=== PATIENT | male | born 1995 | race African-American/Black ===

== ENCOUNTER 2023-04-22 03:58 | Emergency (ER) | payer OTHER ==
--- NOTE | 2023-04-22 04:27 | ED Physician Documentation ---
PD HPI CHEST PAIN - Stated complaint Stated Complaint: CP - Chief complaint Chief Complaint: Cardiac - History obtained from History obtained from: Patient - Additional information Additional information: Patient is a 27-year-old male with no significant prior medical history presenting for evaluation of chest pain that started around 1:00 this morning. Patient is active [employer] and was working at the [employer] but denies that he was doing anything to exert himself and states he was just sitting there when the pain started. He reports it feels similar to when you have eaten food and it gets stuck midway down. He reports it felt like a sharp pain. It has since improved. He denies associated symptoms such as nausea, vomiting, shortness of breath. The pain did not radiate elsewhere. Nothing made it better or worse. Denies prior history of similar symptoms. Denies history of hypertension, hyperlipidemia, diabetes, family history of early coronary artery disease, history of pulmonary embolism, recent travel or immobilization. Denies recent drug or alcohol use. Review of Systems Constitutional: denies: Fever Cardiac: reports: Chest pain / pressure Respiratory: denies: Dyspnea GI: denies: Abdominal Pain Neurologic: denies: Headache PD PAST MEDICAL HISTORY - Allergies Allergies/Adverse Reactions: Allergies Allergy/AdvReac Type Severity Reaction Status Date / Time No Known Drug Allergies Allergy Verified 04/22/23 04:15 PD ED PE NORMAL - General General: Alert and oriented X 3, No acute distress, Well developed/nourished - HEENT HEENT: Atraumatic - Neck Neck: Supple, no meningeal sign - Cardiac Cardiac: RRR, No murmur, Strong equal pulses - Respiratory Respiratory: No respiratory distress, Clear bilaterally - Abdomen Abdomen: Soft, Non tender - Derm Derm: Warm and dry - Extremities Extremities: No edema, No calf tenderness / cord - Neuro Neuro: Normal speech Results - Vitals Vitals: Vital Signs - 24 hr 04/22/23 04/22/23 04/22/23 04:13 04:46 06:15 Temperature 36.4 C L Heart Rate 59 L 57 L 51 L Respiratory 16 16 16 Rate Blood Pressure 157/101 H 145/89 H 130/101 H O2 Saturation 97 96 98 04/22/23 06:26 Temperature Heart Rate 48 L Respiratory 16 Rate Blood Pressure 138/97 H O2 Saturation 98 Oxygen O2 Source Room air - EKG (time done) 0408 EKG releavant findings:: EKG personally interpreted by author of this note. Relevant findings are: Rate 57, sinus bradycardia, no STEMI, T wave flattening in inferior lateral leads, no prior for comparison Rate: Rate (enter#) (57) Rhythm: Sinus bradycardia Intervals: No: Prolonged QT Ischemia: Non specific changes (T wave flattening in inferior and lateral elenita ds). No: ST elevation c/w ischemia Compare to prior EKG: Old EKG unavailable - Labs Labs: Laboratory Tests 04/22/23 04/22/23 04/22/23 04:27 04:27 06:15 WBC 10.5 RBC 4.36 L Hgb 13.6 L Hct 41.0 L MCV 94.0 MCH 31.2 H MCHC 33.2 RDW 12.4 Plt Count 246 MPV 10.1 Neut # (Auto) 5.1 Lymph # (Auto) 4.2 H [place] # (Auto) 1.1 H Eos # (Auto) 0.1 Baso # (Auto) 0.1 Absolute Nucleated RBC 0.00 Nucleated RBC % 0.0 Sodium 139 Potassium 3.6 Chloride 103 Carbon Dioxide 30 Anion Gap 6.0 BUN 15 Creatinine 1.3 Estimated GFR (MDRD) 66 L Glucose 97 Calcium 9.4 Total Bilirubin 0.4 AST 18 ALT 16 Alkaline Phosphatase 58 Troponin I High Sens 2.7 2.3 Total Protein 7.0 Albumin 4.2 Globulin 2.8 Albumin/Globulin Ratio 1.5 Lipase 20 Departure - Departure Disposition: 01 Home, Self Care Clinical Impression: Chest pain Condition: Stable Instructions: ED Chest Pain Atypical Unkn Cause Follow-Up: JEROME Moyer [Provider Group] Comments: You were evaluated this morning for chest pain. At this time the exact cause for your chest pain is unclear but we are not seeing signs of a heart attack or other life-threatening condition to keep you in the hospital. I would recommend close follow-up with your primary care provider at the [facility]. I would recommend follow-up for your chest pain as well as for recheck of your blood pressure as it has been slightly elevated here. If at anytime you develop new or worsening symptoms please consider return to the emergency department. Forms: PCP List
[2023-04-22 04:39] LABS: BASOPHILS # (AUTO) 0.1 10^3/uL (0.0-0.1); BASOPHILS % (AUTO) 0.8 %; EOSINOPHILS # (AUTO) 0.1 10^3/uL (0.0-0.7); EOSINOPHILS % (AUTO) 0.6 %; HGB - HEMOGLOBIN 13.6 g/dL (14.0-18.0); LYMPHOCYTES # (AUTO) 4.2 10^3/uL (1.5-3.5); LYMPHOCYTES % (AUTO) 39.8 %; MEAN CORPUSCULAR HEMOGLOBIN 31.2 pg (27.0-31.0); MEAN CORPUSCULAR HGB CONC 33.2 g/dL (32.0-36.0); MEAN PLATELET VOLUME 10.1 fL (7.4-11.4); MONOCYTES # (AUTO) 1.1 10^3/uL (0.0-1.0); NEUTROPHILS # (AUTO) 5.1 10^3/uL (1.5-6.6); NEUTROPHILS % (AUTO) 48.6 %; PLT - PLATELET COUNT 246 10^3/uL (130-450); RED BLOOD COUNT 4.36 10^6/uL (4.70-6.10); RED CELL DISTRIBUTION WIDTH 12.4 % (12.0-15.0); WHITE BLOOD COUNT 10.5 x10^3/uL (4.8-10.8)
[2023-04-22 04:56] LABS: ALBUMIN 4.2 g/dL (3.2-5.5); ALBUMIN/GLOBULIN RATIO 1.5 (1.0-2.2); BILIRUBIN,TOTAL 0.4 mg/dL (0.2-1.0); CALCIUM 9.4 mg/dL (8.5-10.3); CREATININE 1.3 mg/dL (0.6-1.3); POTASSIUM 3.6 mmol/L (3.5-4.5)
[2023-04-22 05:03] LABS: TROPONIN I HIGH SENSITIVITY 2.7 ng/L (2.3-19.7)
[2023-04-22 06:21] VITALS: O2SAT 98
[2023-04-22 06:32] VITALS: BP 138/97
--- NOTE | 2023-04-22 07:47 | XRAY Report ---
PROCEDURE: Chest 1 View X-Ray INDICATIONS: CP TECHNIQUE: One view of the chest was acquired. COMPARISON: None. FINDINGS: Surgical changes and devices: None. Lungs and pleura: No pleural effusions or pneumothorax. Lungs are clear. Mediastinum: Mediastinal contours appear normal. Heart size is normal. Bones and chest wall: No suspicious bony lesions. Overlying soft tissues appear unremarkable. IMPRESSION: No acute cardiopulmonary process. Reviewed by: Hardy Liu MD on 04/22/2023 7:46 AM PDT Approved by: Hardy Liu MD on 04/22/2023 7:46 AM PDT Station ID: [id number]
== END 2023-04-22 06:55 | disposition home or self-care (01) ==
LOC: ED 03:58
DX: R07.89 Other chest pain (principal)
CPT/HCPCS: 36415; 80053; 83690; 84484; 85025; 93005; 99283; 99284

== ENCOUNTER 2024-03-19 08:00 | Outpatient (CLI) | payer OTHER ==
[2024-03-19 22:27] LABS: CHLAMYDIA TRACHOMATIS DNA NEGATIVE (NEGATIVE); NEISSERIA GONORRHOEAE DNA NEGATIVE (NEGATIVE); TRICHOMONAS VAGINALIS DNA NEGATIVE (NEGATIVE)
== END 2024-03-19 23:59 | disposition home or self-care (01) ==
LOC: LAB.N 08:00
PROVIDERS: ATTEND Physician Assistant
DX: Z11.3 Encounter for screening for infections with a predominantly sexual mode of transmission (principal)
CPT/HCPCS: 87491; 87591; 87661